=== PATIENT | female | born 1985 | race Caucasian/White ===

== ENCOUNTER → 2019-06-04 12:50 | Outpatient (CLI) | payer OTHER, SELFPAY ==
--- NOTE | ~2019-06-04 | US_ITS ---
EXAMINATION: US OB follow up DATE: 06/04/2019 13:12 INDICATION: Size greater than dates, third trimester TECHNIQUE: Real-time ultrasound of the pelvis was performed. The interpreting radiologist was not pre sent for the study. COMPARISON: None. FINDINGS: There is a single living fetus in vertex presentation. The placenta is anterior and 9.9 cm from the internal cervical os. cardiac activity and movement are noted. heart rate is 123 beats per minute (bpm). The amniotic fluid index is 21.8 cm which is normal. The following biometric data were obtained: Biparietal diameter (BPD): 7.5 cm; head circumference (HC): 27.1 cm; abdominal circumference (AC): 27 .2 cm; femur length (FL): 5.5 cm. These measurements are concordant. Estimated weight is 1536 g +/- 234 g, which correlates with the >97th percentile when 08/27/2019 is used as estimated date of delivery. As single measurements, these parameters are each equal to the following estimated gestational ages w ith ranges of +/- 2 standard deviations: BPD: 30 weeks 2 days ( 27 weeks 2 days - 33 weeks 3 days). HC: 29 weeks 5 days ( 27 weeks 4 days - 31 weeks 5 days). AC: 31 weeks 2 days ( 28 weeks 3 days - 34 weeks 2 days). FL: 29 weeks 0 days ( 27 weeks 0 days - 31 weeks 1 days). estimated gestational age based solely on measurements from this exam is 30 weeks 1 days +/- 2 weeks 1 days. IMPRESSION: 1. Single living fetus in vertex presentation. 2. Estimated weight is 1536 g +/- 234 g, which correlates with the >97th percentile when 08/27/19 20 is used as estimated date of delivery. Reviewed, dictated and finalized at location B. IMPRESSION: 1. Single living fetus in vertex presentation. 2. Estimated weight is 1536 g +/- 234 g, which correlates with the >97th percentile when 08/27/2019 is used as estimated date of delivery.
== END ==
PROVIDERS: Visit Provider Nurse Practitioner
DX: O36.63X0 Maternal care for excessive fetal growth, third trimester, not applicable or unspecified (principal); Z3A.30 30 weeks gestation of pregnancy
CPT/HCPCS: 76816

== ENCOUNTER 2019-08-25 10:24 | Outpatient (CLI) | payer OTHER, SELFPAY ==
[2019-08-25 11:13] LABS: Hematocrit 34.3 % (37.0-47.0); Hemoglobin 11.4 g/dL (12.0-15.0); Mean Corpuscular HGB Conc 33.2 g/dl (32-36); Mean Corpuscular Hemoglobin 27.3 pg (26-34); Mean Corpuscular Volume 82.3 fl (80-100); Mean Platelet Volume 9.2 fl (7.4-10.4); Platelet Count Result 219 k/mm3 (150-375); Red Blood Count 4.17 M/mm3 (4.2-5.4); White Blood Count 8.6 K/mm3 (4.5-10.0)
[2019-08-26 09:42] LABS: Rapid Plasma Reagin Non-Reactive (NonReactive)
== END 2019-08-25 10:25 | disposition home or self-care (01) ==
PROVIDERS: Visit Provider Obstetrics & Gynecology
DX: Z34.93 Encounter for supervision of normal pregnancy, unspecified, third trimester (principal); Z3A.00 Weeks of gestation of pregnancy not specified
CPT/HCPCS: 36415; 85027; 86592; 86850; 86900; 86901

== ENCOUNTER 2019-08-26 06:13 | Inpatient (IN) | payer OTHER, SELFPAY ==
--- NOTE | 2019-08-10 14:06 | PC.NURSE ---
PATIENT STATES SHE IS GOING TO HAVE A C/S DUE TO BABY BEING BREECH INSTRUCTED PATIENT,SHE WILL NEED TO HAVE PREOP LABS DRAWN THE DAY BEFORE SURGERY UNLESS IT IS ON FRIDAY ,THEN LABS ARE DRAWN ON FRIDAY PATIENT INSTRUCTED NOTHING BY MOUTH AFTER MIDNIGHT THE NIGHT BEFORE SURGERY ,AND TO BE IN OB 2 HOURS BEFORE SURGERY. PATIENT VERBALIZED HER UNDERSTANDING PATIENT GIVEN REQUISITION FOR LAB
[2019-08-26] VITALS (68 sets, daily range): BP systolic 108–152; BP diastolic 54–116; PULSE 51–87; RESP 16–18; TEMP 36.1–37.4; O2SAT 98–100; BMI 29.5
[2019-08-26] MEDS: LACTATED RINGERS 1,000 ML 125 ML IV CONT (06:51)
--- NOTE | 2019-08-26 06:54 | P.PNAN_ITS ---
Anes - Initial Pre Proc Eval Procedure: Operation Date: 08/26/19 07:30 Proposed Procedures p Primary Section - Bridget Damon MD Date/Time: 08/26/19 06:54 Surgeon: Bridget Damon MD Pre Op Diagnosis: Section Patient Data Age: 33 Gender: F Height: Weight: Last Vital Signs Pulse 81 08/26/19 06:45 BP 140/89 08/26/19 06:45 Allergies Allergy/AdvReac Type Severity Reaction Status Date / Time No Known Allergies Allergy Verified 08/18/19 08:41 Home Medications Medication Instructions Recorded Confirmed Type calcium carbonate 400 mg calcium 400 mg PO DAILY 07/27/19 History (1,000 mg) chewable tablet ferrous sulfate 325 mg (65 mg 325 mg PO DAILY 07/27/19 History iron) tablet omeprazole 20 mg capsule,delayed 20 mg PO DAILY 07/27/19 History release vits 75-iron 28 mg-folic pkg PO 07/27/19 History acid 800 mcg-omega-3 oral combo pack ergocalciferol (vitamin D2) 1,250 mcg PO WEEKLY 08/10/19 08/10/19 History [Vitamin D2] Laboratory Tests 08/26/19 06:47 Sodium Pending Potassium Pending Chloride Pending Carbon Dioxide Pending BUN Pending Creatinine Pending Estim Creat Clear Calc Pending Estimated GFR Pending Glucose Pending Uric Acid Pending Calcium Pending Total Bilirubin Pending AST Pending ALT Pending Alkaline Phosphatase Pending Total Protein Pending Albumin Pending Patient hx anesthesia problems: none Family hx anesthesia problems: none PMFSH Family History Family History Mother Breast cancer Hypertension Father Malignant neoplasm of prostate Diabetes mellitus Hypertension High cholesterol Social History Social History Smoking status: Never smoker Alcohol intake: never Substance use: never Spiritual care concerns: No Anes - Eval Final PreProcedure Day of Procedure 08/26/19 06:54 Patient weight: overweight Heart: regular rate and rhythm Lungs: clear to auscultation Airway: Mallampati scale class II Neurological: alert and oriented Last oral intake: >/= 8 hours ASA classification: II Emergent: no Anesthetic plan: proceed Anesthesia type and monitoring: regional spinal and standard monitoring Informed Consent: The patient's anesthetic plan and its attendant risks and be nefits were discussed with the patient/family/POA. Questions were solicited and answers provided to the satisfaction of the patient/family/POA.
[2019-08-26 07:09] LABS: Alanine Aminotransferase 14 U/L (4-35); Albumin Level 3.7 g/dL (3.5-5.1); Alkaline Phosphatase 160 U/L (38-126); Aspartate Amino Transferase 33 U/L (14-36); Bilirubin,Total < 0.1 mg/dL (0.2-1.3); Blood Urea Nitrogen 7 mg/dL (7-17); Calcium 8.7 mg/dL (8.4-10.2); Carbon Dioxide 21 mmol/L (22-30); Chloride 107 mmol/L (98-107); Estimated Glomerular Filt Rate > 60; Glucose 82 mg/dL (65-105); Potassium 3.3 mmol/L (3.4-5.0); Sodium 135 mmol/L (137-145); Uric Acid 3.3 mg/dL (2.5-7.5)
--- NOTE | 2019-08-26 07:22 | LDADM ---
This patient, Gloria Ricardo, was admitted to Labor/Delivery/Recovery 120 on 08/26/19 at 06:13. Plans for labor, pain management and were discussed with patient. Patient/family oriented to hospital policies and general routines including ID bracelet, bed and alarms, visiting hours, pain management, procedures, bathroom and other care routines, personal items, smoking policy, room service/diet and guest tray routines, infant security routines, and visiting hours. Patient/Family are encouraged to report perceived risks to care and to ask questions if they do not understand what they are told or what they should do. See OBIX for further documentation.
--- NOTE | 2019-08-26 07:36 | PM.IMHP ---
H&P: HPI History of Present Illness Chief complaint: Section Narrative: Golria Ricardo is a 33 year old female primi comes to L & D at 39 weeks 6 days, confirmed by KELSY of 08/27/2019 for primary section for Breech presentation.Procedure reviwed in dertail as well as risk of procedure i.e infection, bleeding may require BT which Pt agrees, injury to bowel/bladder and adjascent structure, anesthesia risk, can be life threatening , Couple voiced verbalized.. All question answered. Review of Systems Constitutional: Constitutional: Reports as per HPI Cardiovascular: Cardiovascular: Reports no additional cardiovascular complaints Respiratory: Respiratory: Reports no additional respiratory complaints Gastrointestinal: Gastrointestinal: Reports no additional gastrointestinal complaints Genitourinary: Genitourinary: Reports no additional female genitourinary complaints [facility] Family History Family History Mother Breast cancer Hypertension Father Malignant neoplasm of prostate Diabetes mellitus Hypertension High cholesterol Social History Social History Smoking status: Never smoker Alcohol intake: never Substance use: never Spiritual care concerns: No Meds Home Medications and Allergies Home Medications Medication Instructions Recorded Confirmed Type calcium carbonate 400 mg calcium 400 mg PO DAILY 07/27/19 08/26/19 History (1,000 mg) chewable tablet ferrous sulfate 325 mg (65 mg 325 mg PO DAILY 07/27/19 08/26/19 History iron) tablet omeprazole 20 mg capsule,delayed 20 mg PO DAILY 07/27/19 08/26/19 History release ergocalciferol (vitamin D2) 1,250 mcg PO WEEKLY 08/10/19 08/10/19 History [Vitamin D2] PNV cmb#95-ferrous fumarate-FA 1 tablet PO DAILY 08/26/19 08/26/19 History [] Allergies Allergy/AdvReac Type Severity Reaction Status Date / Time No Known Allergies Allergy Verified 08/18/19 08:41 Vital Signs Vital Signs - 24 hr 08/26/19 06:29 08/26/19 06:31 08/26/19 06:45 Pulse Rate 87 79 81 Blood Pressure 149/108 H 137/89 140/89 08/26/19 07:01 Pulse Rate 76 Blood Pressure 141/91 H Exam Const: General: comfortable and no acute distress Eyes: General: appearance normal, both eyes and all related structures Resp: Effort & Inspection: normal respiratory effort Auscultation: clear to auscultation bilaterally Cardio: Rate: regular rate Rhythm: regular rhythm : General: Yes other (FHT 130 and category 1) Psych: Mental Status: mental status grossly normal H&P: Results Labs Labs: [facility] 08/26/19 06:47 Sodium 135 L Potassium 3.3 L Chloride 107 Carbon Dioxide 21 L BUN 7 Creatinine 0.50 L Glucose 82 Calcium 8.7 Liver Function 08/26/19 Range/Units 06:47 Total Bilirubin < 0.1 L (0.2-1.3) mg/dL AST 33 (14-36) U/L ALT 14 (4-35) U/L Alkaline Phosphatase 160 H (38-126) U/L Albumin 3.7 (3.5-5.1) g/dL Assessment and Plan Assessment and plan (1) Breech presentation: Code(s): O32.1XX0 - Maternal care for breech presentation, not applicable or unspecified Status: Acute Additional Plan Will proceed with primary section.
--- NOTE | 2019-08-26 08:47 | P.PCNOB_ITS ---
OB - Delivery Note Procedure Delivery date: 08/26/19 Procedure: Procedures Operation Date: 08/26/19 07:30 Actual Procedures Side Surgeon p Section Bridget Damon MD Intrapartal events: None Delivery monitor: external FHT and external uterine Route of delivery: (for breech presentation) Specimen: Yes Estimated blood loss (mL): 315 Anesthesia type: Spinal Disposition: PACU Complications: None [place] Baby Date of : 08/26/19 Weeks of gestation at delivery: 39 Infant gender: Female Weight (pounds): 8 presentation: breech Placenta delivery description: Manual Removal cord vessel description: 3 Vessels score one minute: 9 score five minutes: 9
--- NOTE | 2019-08-26 08:59 | P.OP_ITS ---
Procedure Note - Detailed Date of procedure: 08/26/19 Pre-op diagnosis: Section Post-op diagnosis: same Procedure performed: Primary CD Description of procedure: After informing the risk of the procedure that this infection, bleeding which may require blood transfusion which patient agrees, injury to bowel or bladder or adjacent structure, anesthesia risk, can be life- threatening, informed consent was obtained patient was taken to the operating room. Patient was given spinal anesthesia and then was given supine position and the leftward tilt. River catheter was entered using standard sterile precaution. Patient was prepped and draped in normal sterile fashion. Time-out was performed. Patient received antibiotic as per protocol. A Pfannenstiel skin incision was made 2 cm above the pubis symphysis with a scalpel and carried to the underlying layer of fascia. Fascia was incised in the midline and extended laterally with the help of [place] scissors. Superior aspect of the fascial incision was grasped with Maria C clamps elevated and underlying rectus muscle dissected off bluntly. Similarly the inferior aspect of the fascial incision was grasped with the Maria C clamps elevated and underlying rectus muscle dissected off bluntly. Rectus muscles in the midline. Peritoneum identified and the peritoneum cavity entered bluntly. Peritoneal cavity was extended superiorly and inferiorly with good visualization of bladder. Bladder blade was inserted. Vesicouterine peritoneum identified and and bladder flap created digitally. Bladder blade reinserted. A transverse incision was then made on the lower uterine segment extended laterally with the help of bandage scissors. Amniotomy performed clear fluid noted. And the infant was delivered via breech presentation. head was delivered atraumatically. The nose and mouth was suctioned cord was clamped and cut and handed to the waiting nurses 1st cord blood and gases were collected. Placenta was removed manually. Uterus exteriorized and cleared of all clots. Uterine incision was approximated with 0 Polysorb in a running locked fashion. Second imbricating layer was performed with 0 Polysorb. Excellent hemostasis was noted at the incision site. Posterior cul-de-sac was cleared of all clots. Normal appearing both the ovaries and the fallopian tube. Uterus was entered into the abdomen. Lateral gutters cleared of all clots. One more time excellent hemostasis noted at the uterine incision site. Vesicouterine peritoneum reapproximated with 3 0 Polysorb. Seprafilm was placed at the incision site. All the instruments were removed from the abdomen. Peritoneum was approximated with 3 0 Polysorb. Fascia was approximated with 0 Polysorb. Subcutaneous layer was approximated with 3 0 Polysorb and skin with 4 0 Biosyn and Dermabond. Patient tolerated procedure well. Sponge lap needle counts correct x2. Infant was taken to the nursery room and mother in the recovery room awake and stable condition. Anesthesia: spinal Surgeon: Bridget Damon MD Estimated blood loss (mL): 315 IV fluids (mL): 1,600 Urine output (mL): 250 Drains: Yes (River) Packing: No Complications: No immediate complications Condition: stable Disposition: PACU Findings: Normal uterus, tubes and ovaries, Female infant delivered via breech presentation.
[2019-08-26] MEDS: OXYTOCIN 30 UNITS/NS 500 ML 30 UNITS/500 ML BAG 125 UNITS IV CONT (09:44)
[2019-08-26] MEDS: LORATADINE 10 MG TABLET PO (10:42)
[2019-08-26] MEDS: MORPHINE SULFATE 2 MG/ML INJ 3 MG IV PUSH (10:50)
--- NOTE | 2019-08-26 11:05 | PC.NURSE ---
PT arrived on unit via stretcher accompanied by spouse and and taken to room 286. PT moved to bed via maxi air without difficulty. PT oriented to room 286 and surrounding area. PT introductions made and plan of care discussed per post op c section, pain management, breast feeding, daily care activities. Welcome packet reviewed and discussed. PT verbalized understanding of such care.
[2019-08-26] MEDS: KETOROLAC 30 MG/ML VIAL (*BKC) IV PUSH (12:27)
[2019-08-26] MEDS: SIMETHICONE 80 MG TAB.CHEW PO (12:27)
[2019-08-26] MEDS: LANOLIN (LANSINOH) 7.5 GM CREAM 1 APPLIC TOPICAL (12:28)
--- NOTE | 2019-08-26 12:45 | PC.NURSE ---
Primary RN called for assist with latching . Mother reports has not fed since , she has made several attempts without a successful latch. Reviewed feeding cues, frequencies, duration of feedings, feeding elimination flow sheet, and signs of adequate intake. Demonstrated stimulation techniques to wake infant for feeding. sleepy and makes minimal feeding cues. Assisted with to breast. Reviewed positioning/alignment in cross cradle, holding breast in U hold and guided asymmetrical latch on. Discussed rational for each. was unable to latch correctly. keeps tongue up and bottom lip rolled in. Unable to get nipple deeply into infant mouth. Attempt for 15 minutes. Offered and explained a nipple shield, parents are willing to attempt using shield. Nipple shield provided to mother due to ineffective latch. Discussed nipple shield precautions and possible complications. Instructions given on application and cleaning of shield. Patient able to return demonstration on proper application of shield. Discussed the need to initiate pumping if continues to nurse with the shield. Patient verbalizes understanding. With shield in place, was able to latch with tongue down and made minimal efforts to suckle. Attempt for 15 minutes with no successful suckling noted. Discussed feeding options, parents would like infant to be supplemented at this time.
--- NOTE | 2019-08-26 15:15 | PC.NURSE ---
Mother called out for assist with feeding. Demonstrated stimulation techniques to wake for feeding. sleepy and makes minimal feeding cues. Assisted with infant to breast. Reviewed positioning/alignment in cross cradle, holding breast in U hold and guided asymmetrical latch on. Discussed rational for each. Infant was unable to latch correctly using nipple shield. Reviewed positioning/alignment in cross cradle, holding breast in U hold and guided asymmetrical latch on. was able to latch correctly. nursed eagerly with steady draws for bursts followed with long pausing. Reviewed signs of a correct latch, effective nursing and suck swallow ratio. Infant was able to maintain latch without discomfort to mother. Nipple care reviewed. Suggested to stimulate to keep awake and nursing effectively for increased intake and assist maintaining deep latch. suckled on and off for 15 minutes. then supplemented per parents choice.
[2019-08-26] MEDS: ONDANSETRON INJ 4 MG/2 ML VIAL IV PUSH (16:27)
[2019-08-26] MEDS: IBUPROFEN 600 MG TABLET PO (19:49)
[2019-08-27 00:10] VITALS: BP 121/85; PULSE 81; RESP 16; TEMP 36.8
[2019-08-27] MEDS: IBUPROFEN 600 MG TABLET PO ×4 (03:20→22:51)
[2019-08-27 04:25] VITALS: BP 116/79; PULSE 78; RESP 16; TEMP 36.7
[2019-08-27 05:46] LABS: Basophils Percent Auto 0.4 % (0.2-1.2); Eosinophils Absolute Auto 0.1 K/mm3 (0-0.3); Eosinophils Percent Auto 0.6 % (0-4.4); Hematocrit 29.6 % (37.0-47.0); Hemoglobin 9.6 g/dL (12.0-15.0); Immature Granulocyte Absolute 0.04 K/mm3 (0.00-0.031); Immature Granulocyte Percent A 0.5 % (0-0.5); Lymphocytes Absolute Auto 1.64 K/mm3 (0.9-3.2); Lymphocytes Percent Auto 19.3 % (18.3-44.2); Mean Corpuscular HGB Conc 32.4 g/dl (32-36); Mean Corpuscular Hemoglobin 27.4 pg (26-34); Mean Corpuscular Volume 84.3 fl (80-100); Mean Platelet Volume 9.8 fl (7.4-10.4); Monocytes Absolute Auto 0.8 K/mm3 (0.1-0.6); Monocytes Percent Auto 8.9 % (2.6-8.5); Neutrophils Percent Auto 70.3 % (45.5-73.1); Platelet Count Result 195 k/mm3 (150-375); Red Blood Count 3.51 M/mm3 (4.2-5.4); Red Cell Distribution Width 14.2 % (11.5-14.5); White Blood Count 8.5 K/mm3 (4.5-10.0)
[2019-08-27 08:05] VITALS: BP 127/76; PULSE 69; RESP 18; TEMP 36.7; O2SAT 98
[2019-08-27] MEDS: POLYSACCHARIDE IRON COMPLEX 150 MG CAPSULE PO ×2 (09:15→16:49)
[2019-08-27] MEDS: MULTIVIT/MIN/PREN/FOL AC/IRON TABLET 1 TAB PO (09:15)
[2019-08-27] MEDS: DOCUSATE SODIUM 100 MG CAPSULE PO ×2 (09:15→16:49)
--- NOTE | 2019-08-27 10:32 | PM.OBPNVD ---
OB - PN: Subj Subjective Date/time seen: 08/27/19 10:32 Patient comments: no complaints, pain well controlled and tolerating diet [place] baby status: doing well [place] feeding status: breast and bottle feeding OB - PN: Obj Data Labs CBC & Chem 7: 08/27/19 04:26 08/26/19 06:47 Labs: Laboratory Results - last 24 hr 08/27/19 04:26 WBC 8.5 RBC 3.51 L Hgb 9.6 L Hct 29.6 L MCV 84.3 MCH 27.4 MCHC 32.4 RDW 14.2 Plt Count 195 MPV 9.8 Immature Gran % (Auto) 0.5 Neut % (Auto) 70.3 Lymph % (Auto) 19.3 [place] % (Auto) 8.9 H Eos % (Auto) 0.6 Baso % (Auto) 0.4 Lymph # (Auto) 1.64 [place] # (Auto) 0.8 H Eos # (Auto) 0.1 Baso # (Auto) 0.0 Abs Immat Gran (auto) 0.04 H Absolute Neuts (auto) 6.0 Absolute Nucleated RBC 0.0 Nucleated RBC % 0.0 OB - PN A/P Plan day: 1 Plan: routine care Comments: BF instucted Encourage ambulation Time Spent With Patient Time: Total time spent is greater than 50% in coordination of care (as documented) at patient's floor/unit and/or counseling patient: Time with patient: less than 15 minutes Review of Systems Constitutional: Constitutional: Reports as per HPI Cardiovascular: Cardiovascular: Reports no additional cardiovascular complaints Respiratory: Respiratory: Reports no additional respiratory complaints Gastrointestinal: Gastrointestinal: Reports no additional gastrointestinal complaints Genitourinary: Genitourinary: Reports no additional female genitourinary complaints Exam Const: General: comfortable, no acute distress, alert and awake Orientation/consciousness: patient oriented x3 Resp: Effort & Inspection: normal respiratory effort Auscultation: clear to auscultation bilaterally Cardio: Rate: regular rate GI: Auscultation: normal bowel sounds Other: Incision: C/D/I fundus firm below umbilicus Psych: Appearance: grossly normal Affect: normal affect Attitude: cooperative Judgement: Good judgement present (Psych)
--- NOTE | 2019-08-27 10:34 | PM.OBDSVD ---
DS: Admitting Diagnosis Admitting Diagnosis Admitting Diagnosis: Maternal care for breech presentation, not applicable or unspecified OB - DS: Summary OB Procedures : None OB Procedures Intrapartum: OB Procedures: : None Peripartum Data Infant Delivery Method: Section (for breech presentation) Procedures: Procedures Operation Date: 08/26/19 07:30 Actual Procedures Side Surgeon p Section Bridget Damon MD complications: none Time Spent with Patient Time attestation: Total time spent providing and/or coordinating discharge services: Exam Const: General: comfortable, no acute distress, alert, awake and anxious Orientation/consciousness: patient oriented x3 Resp: Effort & Inspection: normal respiratory effort Auscultation: clear to auscultation bilaterally Cardio: Rate: regular rate GI: GI Palp: Yes Soft to palpation and Yes Firmness to palpation present (GI) Auscultation: normal bowel sounds Other: Incision; C/D/I Fundus firm below umbilicus Psych: Appearance: grossly normal Affect: normal affect Attitude: cooperative Thought content: Yes Normal thought content present Judgement: Good judgement present (Psych) DS: Data Data Completed and Pending Labs on day of discharge: Labs from last 24 hours 08/27/19 04:26 WBC 8.5 RBC 3.51 L Hgb 9.6 L Hct 29.6 L MCV 84.3 MCH 27.4 MCHC 32.4 RDW 14.2 Plt Count 195 MPV 9.8 Immature Gran % (Auto) 0.5 Neut % (Auto) 70.3 Lymph % (Auto) 19.3 [place] % (Auto) 8.9 H Eos % (Auto) 0.6 Baso % (Auto) 0.4 Lymph # (Auto) 1.64 [place] # (Auto) 0.8 H Eos # (Auto) 0.1 Baso # (Auto) 0.0 Abs Immat Gran (auto) 0.04 H Absolute Neuts (auto) 6.0 Absolute Nucleated RBC 0.0 Nucleated RBC % 0.0 Discharge Plan Discharge Attending physician on discharge: Bridget Damon Discharging Clinician: Bridget Damon Patient Disposition: Home, Self-Care Activity: may drive after 2 weeks and pelvic rest Diet: regular Patient Instructions: Antibiotic Form Stand Alone Forms: General Discharge Information Follow-up/Referrals: Bridget Damon MD [Physician] - Discharge Medications: New hydrocodone-acetaminophen [[place]] 10-325 mg Tablet 1 tab PO Q3H PRN (Reason: Pain Rated 7-10) Qty: 30 RF: 0 docusate sodium 100 mg Capsule 100 mg PO BID Qty: 60 RF: 1 ibuprofen 600 mg Tablet 600 mg PO Q6H PRN (Reason: Cramping) Qty: 60 RF: 0 polysaccharide iron complex 150 mg iron Capsule 150 mg PO BIDWM Qty: 60 RF: 0 Continued ferrous sulfate 325 mg (65 mg iron) tablet 325 mg PO DAILY RF: 0 calcium carbonate 400 mg calcium (1,000 mg) tablet,chewable 400 mg PO DAILY RF: 0 ergocalciferol (vitamin D2) [Vitamin D2] 1,250 mcg (50,000 unit) Capsule 1,250 mcg PO WEEKLY RF: 0 PNV cmb#95-ferrous fumarate-FA [] 28 mg iron- 800 mcg Tablet 1 tablet PO DAILY RF: 0 Discontinued omeprazole 20 mg capsule,delayed release(DR/EC) 20 mg PO DAILY RF: 0 Date of admission: 08/26/19 06:13 Primary Care Provider: PHYSICIAN,TECHNICAL SUPPORT COORDINATOR Admitting Provider: Bridget Damon Attending physician on admission: Bridget Damon
--- NOTE | 2019-08-27 12:43 | WPDANLDPN2 ---
Anes-Prog Note L&D Date/Time: 08/27/19 12:43 Comfortable throughout: section Neuraxial method: spinal Epidural/Spinal procedure site: clean & non-tender Neuro status: Neuro function grossly intact. Cardiovascular status: normal Respiratory status: normal Airway patency: baseline Mental status: baseline Post-Op hydration status: normal Vital Signs: Last Vital Signs Temp 36.7 C 08/27/19 08:05 Pulse 69 08/27/19 08:05 Resp 18 08/27/19 08:05 BP 127/76 08/27/19 08:05 Pulse Ox 98 08/27/19 08:05 I/O: Intake & Output 08/26/19 08/27/19 08/27/19 23:59 07:59 15:59 Intake Total 1000 1800 Output Total 300 2400 Balance 700 -600 Post-procedural complaints: none Patient feedback: Patient satisfied with anesthetic care.
--- NOTE | 2019-08-27 12:44 | WPDANLDNPN2 ---
Anes-Prog Note L&D-Neuraxial Date/Time: 08/27/19 12:44 Neuraxial medications: intrathecal PF morphine Opiod-related complaints: none Patient feedback: Patient satisfied with post-operative pain management.
--- NOTE | 2019-08-27 15:00 | PC.NURSE ---
Patient's was heard by RN's at the nurses station yelling in the room. He said LOOK AT YOUR DAUGHTER in a very loud and aggressive tone. RN did not hear further yelling and went into the room to check on the patient. Pt in bed eating lunch and on the couch holding the baby. would not make eye contact with RN and pt states that everything is ok and she doesn't need anything at this time. metal plater notified.
--- NOTE | 2019-08-27 15:15 | PC.NURSE ---
Reports of loud angry yelling coming from room. Observed mother was crying upon entering. Introductions made as iv therapy nurse, discussion with parents that report was given of yelling. Asked if there was a problem or something that we can help parents with. Mother now very upset and crying stating I am so embarrassed . Assured her she does not need to be embarrassed we are here to help. LARA was lying on the sofa with head turned to wall, he said there is nothing going on and there is not problem Again, reassured parents this can be a stressful time and please let us know what we can do to assist if needed.
[2019-08-27 22:03] VITALS: BP 139/87; PULSE 81; RESP 14; TEMP 36.7; O2SAT 98
[2019-08-28] MEDS: IBUPROFEN 600 MG TABLET PO ×4 (05:57→23:25)
[2019-08-28 07:40] VITALS: BP 126/80; PULSE 83; RESP 18; TEMP 36.5; O2SAT 98
[2019-08-28] MEDS: MULTIVIT/MIN/PREN/FOL AC/IRON TABLET 1 TAB PO (08:54)
[2019-08-28] MEDS: DOCUSATE SODIUM 100 MG CAPSULE PO ×2 (08:54→17:48)
[2019-08-28] MEDS: POLYSACCHARIDE IRON COMPLEX 150 MG CAPSULE PO ×2 (08:54→17:49)
[2019-08-28 19:10] VITALS: BP 137/91; PULSE 79; RESP 14; TEMP 37.2; O2SAT 100
[2019-08-29] MEDS: IBUPROFEN 600 MG TABLET PO ×2 (05:34→12:54)
[2019-08-29 08:55] VITALS: BP 135/88; PULSE 72; RESP 16; TEMP 36.8
--- NOTE | 2019-08-29 08:55 | PC.NURSE ---
Patient received instruction on viewing the discharge video Mother & Baby Care, The First Two Weeks online. Patient was given the opportunity and encouraged to ask questions. Patient verbalized understanding of information shared and has been given the mother/baby guide for home reference.
[2019-08-29] MEDS: DOCUSATE SODIUM 100 MG CAPSULE PO (08:56)
[2019-08-29] MEDS: POLYSACCHARIDE IRON COMPLEX 150 MG CAPSULE PO (08:56)
[2019-08-29] MEDS: MULTIVIT/MIN/PREN/FOL AC/IRON TABLET 1 TAB PO (08:56)
--- NOTE | 2019-08-29 11:02 | P.PNOB_ITS ---
OB - PN: Subj Subjective Date/time seen: 08/29/19 11:02 Patient comments: pain well controlled, tolerating diet and flatus present baby status: doing well, nursing well and bottle feeding well feeding status: breast and bottle feeding OB - PN: Obj Data Labs CBC & Chem 7: 08/27/19 04:26 08/26/19 06:47 OB - PN A/P Plan day: 3 Plan: discharge home and other (F/U in 1 week for incision checkup) Comments: BF instructed Time Spent With Patient Time: Total time spent is greater than 50% in coordination of care (as documented) at patient's floor/unit and/or counseling patient: Time with patient: 15 - 25 minutes Review of Systems Constitutional: Constitutional: Reports no additional constitutional complain ts Cardiovascular: Cardiovascular: Reports no additional cardiovascular complaints Respiratory: Respiratory: Reports no additional respiratory complaints Gastrointestinal: Gastrointestinal: Reports no additional gastrointestinal complaints Genitourinary: Genitourinary: Reports no additional female genitourinary complaints Exam Const: General: comfortable, no acute distress, alert and awake Resp: Effort & Inspection: normal respiratory effort Auscultation: clear to auscultation bilaterally Cardio: Rate: regular rate GI: Auscultation: normal bowel sounds Other: Incision: C/D/I Fundus firm below umbilicus
[2019-08-30 09:08] VITALS: BP 132/89; PULSE 80; RESP 20; TEMP 36.7; O2SAT 100
== END 2019-08-29 14:34 | disposition home or self-care (01) | DRG 788 ==
LOC: ANHLDR 06:19 → ANHOB2 11:12
PROVIDERS: Admitting Provider Obstetrics & Gynecology; Visit Provider Obstetrics & Gynecology
PROC: 10D00Z1 Extraction of Products of Conception, Low, Open Approach (ICD-10-PCS; CPT 59514; principal; 2019-08-26 07:30)
DX: O32.1XX0 Maternal care for breech presentation, not applicable or unspecified (principal); Z3A.39 39 weeks gestation of pregnancy; Z37.0 Single live birth
CPT/HCPCS: 36415; 80053; 84550; 85025; A9270; C1765; J0131; J1200; J1885; J2270; J2274; J2370; J2405; J2590; J7120